=== PATIENT | male | born 1960 | race African-American/Black ===

== ENCOUNTER 2016-07-24 12:57 | Emergency (ER) | payer OTHER ==
--- NOTE | 2016-07-24 13:21 | ED EKG INTERP ---
EKG Interpretation - EKG Time of EKG reading by physician:: 13:18 EKG Read and Signed by:: Tal Bowden EKG Interpretation (*Must complete 3 of following elements*): Abnormal Rate: 68 Rhythm: nsr [place]: normal QRS: normal [place] Interval: normal ST Wave: normal Comments: inferior infarct
[2016-07-24 13:46] LABS: MANUAL DIFF NEEDED? NO
[2016-07-24 13:49] LABS: BASO% 0.3 % (0.0-0.8); EOS# 0.22 X1000 (0.0-0.7); EOS% 3.1 % (0.0-10.0); HEMATOCRIT 44.2 % (42.0-52.0); IMM GRAN# 0.03 X1000 (0.0-0.04); IMM GRAN% 0.4 % (0.0-0.5); LYMPH# 2.73 X1000 (1.2-3.4); LYMPH% 38.8 % (20.5-51.1); MCH 28.8 PG (27-31); MCHC 33.9 g/dL (33-37); MONO# 0.58 X1000 (0.11-0.59); MONO% 8.2 % (1.7-9.3); MPV 10.7 FL (7.4-10.4); NEUT% 49.2 % (42.2-75.2); PLT 257 X1000 (130-400)
[2016-07-24 14:16] LABS: AGAP 12; ALBUMIN 4.3 g/dL (3.5-5.0); ALKALINE PHOSPHATASE 76 U/L (32-122); BUN 20 mg/dL (8-22); CALCIUM 9.2 mg/dL (8.8-10.2); CHLORIDE 104 mmol/L (98-107); CK PROFILE 199 U/L (24-204); COSMO 285; GOT 18 U/L (10-34); GPT 20 U/L (10-44); MAGNESIUM 1.9 mg/dL (1.5-2.7); POTASSIUM 4.2 mmol/L (3.5-5.1); SODIUM 142 mmol/L (136-145); TCO2 26 mmol/L (25-35); TOTAL BILIRUBIN 0.45 mg/dL (0.20-1.00); TOTAL PROTEIN 7.5 g/dL (6.3-8.3)
--- NOTE | 2016-07-24 14:20 | Diag Imaging Result Document ---
PROCEDURE NAME: CHEST-2 VIEWS - 07/24/2016 PA AND LATERAL RADIOGRAPH OF THE CHEST: COMPARISON: 08/09/2013. FINDINGS: The lungs are grossly clear. There is no discrete pleural fluid collection or evidence of pneumothorax. The cardiomediastinal silhouette and upper airway are grossly unremarkable. IMPRESSION: No evidence of acute chest pathology.
--- NOTE | 2016-07-24 14:25 | EKG Report ---
Test Performed on : 07/24/2016 1:18:02 PM Test Reason : Chest Pain Blood Pressure : / mmHG Vent. Rate : 068 BPM Atrial Rate : 068 BPM P-R Int : 186 ms QRS Dur : 084 ms QT Int : 420 ms P-R-T Axes : 046 -07 028 degrees QTc Int : 446 ms Normal sinus rhythm. Inferior infarct , age undetermined Abnormal ECG No previous ECGs available Unconfirmed Result
[2016-07-24 14:29] LABS: PTT 25.2 Seconds (22.0-36.0)
[2016-07-24 14:30] LABS: PROTIME 10.2 Seconds (9.2-11.7)
--- NOTE | 2016-07-24 15:26 | PROVIDER DOCUMENTATION ---
HPI-Chest Pain - General Chief Complaint: Chest Pain Stated Complaint: CP Time Seen by Provider: 07/24/16 14:31 Source: patient Allergies/Adverse Reactions: Patient Allergies Allergy/AdvReac Type Severity Reaction Status Date / Time No Known Allergies Allergy Verified 07/24/16 15:07 Home Medications: Home Medication List Medication Instructions Recorded Confirmed Last Taken Type Dexamethasone [Decadron] 4 mg PO QAM #6 tablet 08/10/13 Unknown Rx Lisinopril 10 mg PO QAM #30 tablet 08/10/13 Unknown Rx - History of Present Illness-CP Nature of Presenting Problem: 56 y/o M nonsmoker with no chronic medical problems presents with chest pain x 2 weeks. Pain is described as a constant pressure/burning, 4/10, located in the center of his chest and radiating to the left chest. Reports pain improved temporarily with taking some samples of protonix he had at home. He denies any associated SOB, N/V, or diaphoresis. He reports one episode of feeling "woozy" today. Father had TN in his 60's. He has an appointment with his PCP in the morning for the chest pain but decided he wanted to get checked out tonight to make sure he wasn't having a heart attack. Review of Systems - Adult - REVIEW OF SYSTEMS - ADULT Constitutional: reports: no symptoms reported. denies: chills, fever Eyes: reports: no symptoms reported Ears, Nose, Mouth & Throat: reports: no symptoms reported Cardiovascular: reports: see HPI Respiratory: reports: no symptoms reported. denies: cough, shortness of breath , wheezing Gastrointestinal: reports: no symptoms reported. denies: abdominal pain, nausea , vomiting Genitourinary: reports: no symptoms reported. denies: dysuria, hematuria Musculoskeletal: reports: no symptoms reported. denies: back pain, neck pain Integumentary: reports: no symptoms reported Neurological: reports: no symptoms reported. denies: dizziness/vertigo, headache/migraines, numbness, paresthesia, syncope Psychiatric: reports: no symptoms reported Endocrine: reports: no symptoms reported Hematologic/Lymphatic: reports: no symptoms reported Allergic/Immunologic: reports: no symptoms reported All Other Systems: Reviewed and Negative Past History - Adult - PAST MEDICAL HISTORY-ADULT Review of Records: reports: Old Records Reviewed, Nursing Assessment Review, Medications Reviewed, Social history reviewed & non-contributory. Major Childhood Illnesses: reports: denies history Cardiovascular: reports: denies history Respiratory: reports: denies history Gastrointestinal: reports: denies history Obstetrical/Gynecological: reports: denies history Genitourinary: reports: denies history Musculoskeletal: reports: denies history Neurological: reports: denies history Psychiatric: reports: denies history Endocrine/Immune: reports: denies history Other Conditions: reports: denies history - PRIOR SURGERIES/PROCEDURES Surgical/Procedure History: reports: none - PRIOR HOSPITALIZATIONS Prior Hospitalizations: reports: none - IMMUNIZATION STATUS Childhood Immunizations: See Nurse Assessment Flu Vaccine: See Nurse Assessment - FAMILY HISTORY Family History: reviewed, not pertinent Physical Exam-General - PHYSICAL EXAM-ADULT Initial Vital Signs Reviewed: Yes - CONSTITUTIONAL General Appearance: appears well, alert, no apparent distress, other (patient standing in room eating ludwig[employer]) - EYES Eyes: PERRL/EOMI, pink conjunctivae - HEAD, EARS, NOSE, MOUTH & THROAT HENMT: normocephalic/atraumatic, moist mucous membranes - NECK Neck: normal inspection - RESPIRATORY Respiratory: chest non-tender, lungs clear, normal breath sounds, no pleuratic chest pain, no respiratory distress, no accessory muscle use - CARDIOVASCULAR Cardiovascular: normal peripheral pulses, regular rate, rhythm, no edema, no gallop, no JVD, no murmur - GASTROINTESTINAL (ABDOMEN) Abdominal Exam: normal bowel sounds, non tender, soft - MUSCULOSKELETAL Back Exam: normal inspection Extremity: normal gait, normal inspection Peripheral Pulses: radial (R): 2+, radial (L): 2+ - SKIN Integumentary: normal color, normal turgor, warm/dry - NEUROLOGIC Neurologic: grossly normal, no motor/sensory deficits - PSYCHIATRIC Psych/Mental Status: normal mood/affect, normal thought content, normal thought process, oriented x 3 Progress - PLAN OF CARE/RESULTS Progress/Plan/Lab Results: Laboratory Tests 07/24/16 07/24/16 07/24/16 13:19 13:19 13:19 WBC 7.04 RBC 5.20 Hgb 15.0 Hct 44.2 MCV 85.0 MCH 28.8 MCHC 33.9 RDW Std Deviation 12.2 Plt Count 257 MPV 10.7 H Immature Gran % (Auto) 0.4 Neut % (Auto) 49.2 Lymph % (Auto) 38.8 [place] % (Auto) 8.2 Eos % (Auto) 3.1 Baso % (Auto) 0.3 Immature Gran # (Auto) 0.03 Neut # (Auto) 3.46 Lymph # (Auto) 2.73 [place] # (Auto) 0.58 Eos # (Auto) 0.22 Baso # (Auto) 0.02 PT INR PTT (Actin FS) D-Dimer 0.21 Sodium 142 Potassium 4.2 Chloride 104 Carbon Dioxide 26 Anion Gap 12 BUN 20 Creatinine 1.2 Estimated GFR/1.73 m2 > 60 BUN/Creatinine Ratio 17 Glucose 93 Calculated Osmolality 285 Calcium 9.2 Magnesium 1.9 Total Bilirubin 0.45 AST 18 ALT 20 Alkaline Phosphatase 76 Creatine Kinase 199 Troponin T Sjd-B-Couvmcqhhwy Pept Total Protein 7.5 Albumin 4.3 Globulin 3.2 Albumin/Globulin Ratio 1.3 07/24/16 07/24/16 07/24/16 13:19 13:19 13:19 WBC RBC Hgb Hct MCV MCH MCHC RDW Std Deviation Plt Count MPV Immature Gran % (Auto) Neut % (Auto) Lymph % (Auto) [place] % (Auto) Eos % (Auto) Baso % (Auto) Immature Gran # (Auto) Neut # (Auto) Lymph # (Auto) [place] # (Auto) Eos # (Auto) Baso # (Auto) PT 10.2 INR 1.00 PTT (Actin FS) 25.2 D-Dimer Sodium Potassium Chloride Carbon Dioxide Anion Gap BUN Creatinine Estimated GFR/1.73 m2 BUN/Creatinine Ratio Glucose Calculated Osmolality Calcium Magnesium Total Bilirubin AST ALT Alkaline Phosphatase Creatine Kinase Troponin T < 0.010 Qdc-I-Lctyyojzcqs Pept 38 Total Protein Albumin Globulin Albumin/Globulin Ratio Orders Category Date Time Status Orthostatic Vital Signs NOW Care 07/24/16 15:04 Active CHEST-2 VIEWS [RAD] Stat Exams 07/24/16 13:12 Draft CBC WITH ELECTRONIC DIFF [HEME] Stat Lab 07/24/16 13:19 Completed CK PROFILE [SP CHEM] Stat Lab 07/24/16 13:19 Completed COMPREHENSIVE METABOLIC PANEL [CHEM] Stat Lab 07/24/16 13:19 Completed D-DIMER [CHEM] Stat Lab 07/24/16 13:19 Completed MAGNESIUM [CHEM] Stat Lab 07/24/16 13:19 Completed PRO B-NATRIURETIC PEPTIDE Stat Lab 07/24/16 13:19 Completed PROTIME WITH INR [COAG] Stat Lab 07/24/16 13:19 Completed PTT [COAG] Stat Lab 07/24/16 13:19 Completed TROPONIN T Stat Lab 07/24/16 13:19 Completed EKG [EKG] Stat Ther 07/24/16 13:12 Draft Vital Signs Temp Pulse Resp BP Pulse Ox 07/24/16 13:08 97.9 F 67 16 134/87 100 No Known Allergies Allergy (Verified 07/24/16 15:07) Dexamethasone [Decadron] 4 mg PO QAM #6 tablet 08/10/13 Lisinopril 10 mg PO QAM #30 tablet 08/10/13 Laboratory 07/24/16 07/24/16 07/24/16 13:19 13:19 13:19 WBC RBC Hgb Hct MCV MCH MCHC RDW Std Deviation Plt Count MPV Immature Gran % (Auto) Neut % (Auto) Lymph % (Auto) [place] % (Auto) Eos % (Auto) Baso % (Auto) Immature Gran # (Auto) Neut # (Auto) Lymph # (Auto) [place] # (Auto) Eos # (Auto) Baso # (Auto) PT 10.2 INR 1.00 PTT (Actin FS) 25.2 D-Dimer Sodium Potassium Chloride Carbon Dioxide Anion Gap BUN Creatinine Estimated GFR/1.73 m2 BUN/Creatinine Ratio Glucose Calculated Osmolality Calcium Magnesium Total Bilirubin AST ALT Alkaline Phosphatase Creatine Kinase Troponin T < 0.010 Xog-L-Kkuzivtazzp Pept 38 Total Protein Albumin Globulin Albumin/Globulin Ratio 07/24/16 07/24/16 07/24/16 13:19 13:19 13:19 WBC 7.04 RBC 5.20 Hgb 15.0 Hct 44.2 MCV 85.0 MCH 28.8 MCHC 33.9 RDW Std Deviation 12.2 Plt Count 257 MPV 10.7 H Immature Gran % (Auto) 0.4 Neut % (Auto) 49.2 Lymph % (Auto) 38.8 [place] % (Auto) 8.2 Eos % (Auto) 3.1 Baso % (Auto) 0.3 Immature Gran # (Auto) 0.03 Neut # (Auto) 3.46 Lymph # (Auto) 2.73 [place] # (Auto) 0.58 Eos # (Auto) 0.22 Baso # (Auto) 0.02 PT INR PTT (Actin FS) D-Dimer 0.21 Sodium 142 Potassium 4.2 Chloride 104 Carbon Dioxide 26 Anion Gap 12 BUN 20 Creatinine 1.2 Estimated GFR/1.73 m2 > 60 BUN/Creatinine Ratio 17 Glucose 93 Calculated Osmolality 285 Calcium 9.2 Magnesium 1.9 Total Bilirubin 0.45 AST 18 ALT 20 Alkaline Phosphatase 76 Creatine Kinase 199 Troponin T Smo-U-Bfjmtaetstj Pept Total Protein 7.5 Albumin 4.3 Globulin 3.2 Albumin/Globulin Ratio 1.3 Patient with low cardiac risk and chest pain atypical of cardiac pain. Labs unremarkable. EKG normal. CXR NAD. Discussed with Dr. Bowden. Will discharge patient home to follow up with PCP tomorrow. Patient counseled on reasons to return to the ER. He voices understanding and agrees. - EKG 1 Time of EKG reading by physician:: 15:25 EKG Read and Signed by:: Tal Bowden EKG Interpretation (*Must complete 3 of following elements*): Normal Rate: 68 Rhythm: NSR [place]: normal QRS: normal [place] Interval: normal ST Wave: normal Comments: Reviewed EKG with Dr. Bowden. No inferior infarct. - XRAY 1 XRAY Study: Chest XRAY Interpretation: NAD Departure - Departure Time of Disposition Order: 15:21 DIAGNOSIS: Chest pain Qualifiers: Chest pain type: unspecified Qualified Code(s): R07.9 - Chest pain, unspecified Disposition: HOME 01 Certified Medical Emergency: Emergent Condition: Good Additional Instructions: keep your appointment with your primary care provider tomorrow for further evaluation including scheduling an outpatient stress test. ED Follow Up Instructions: You have been treated by a care provider in the Emergency Department. These instructions are being provided to you so you can have an understanding of how to care for yourself upon discharge. Upon discharge from the Emergency Department, you are responsible for making arrangements for follow-up care by a physician of your choice. Take all prescribed medications as directed. Return to the Emergency Department immediately for any new or worsening symptoms. You may call the Physician Referral phone number at [phone] to obtain a list of Physicians who are taking new patients. Attestation - Physician/ SYEDA Attestation Patient care was provided by Advanced Practice Provider:: Yes Advanced Practice Provider:: Filomena Medina Advanced Practice Provider documentation review:: The Mid-level provider documentation, treatment plan and medical decision making was reviewed by the physician who agrees with all treatment and medical decision making by the MLP.
[2016-07-24 15:54] VITALS: BP 151/98
== END 2016-07-24 15:54 | disposition home or self-care (01) ==
LOC: ED 12:57
DX: R07.9 Chest pain, unspecified (principal); R94.31 Abnormal electrocardiogram [ECG] [EKG]
CPT/HCPCS: 71020; 80053; 82550; 83735; 83880; 84484; 85025; 85379; 85610; 85730; 93005

== ENCOUNTER 2016-12-08 03:53 | Inpatient (IN) ==
[2016-12-02 09:19] LABS: MANUAL DIFF NEEDED? NO; URINE MICRO REVIEW NEEDED? NO; URINE SOURCE CLEAN CATCH
[2016-12-02 09:25] LABS: BASO% 0.5 % (0.0-0.8); BILIRUBIN URINE NEGATIVE (NEGATIVE); BLOOD URINE TRACE (NEGATIVE); COLOR YELLOW; EOS# 0.23 X1000 (0.0-0.7); EOS% 3.6 % (0.0-10.0); GLUCOSE URINE NEGATIVE (NEGATIVE); HEMATOCRIT 44.9 % (42.0-52.0); HEMOGLOBIN 14.9 g/dL (14.0-18.0); LEUKOCYTES URINE NEGATIVE (NEGATIVE); LYMPH# 2.32 X1000 (1.2-3.4); LYMPH% 35.9 % (20.5-51.1); MCH 28.9 PG (27-31); MCHC 33.2 g/dL (33-37); MCV 87.2 FL (81-99); MONO# 0.54 X1000 (0.11-0.59); MONO% 8.3 % (1.7-9.3); MPV 10.6 FL (7.4-10.4); NEUT% 51.7 % (42.2-75.2); NITRITE URINE NEGATIVE (NEGATIVE); PH URINE 5.5; PLT 269 X1000 (130-400); PROTEIN URINE NEGATIVE (NEGATIVE); RBC 5.15 XMIL (4.7-6.1); SP GRAVITY URINE 1.017; TURBIDITY URINE CLEAR (CLEAR); UR EPITHELIAL CELLS <10 /HPF (<10); URINE BACTERIA NEGATIVE /HPF; URINE RBC <10 /HPF (<10); URINE WBC <10 /HPF (<10); UROBILINOGEN URINE NORMAL (NORMAL)
[2016-12-02 09:35] LABS: INR 1.02; PROTIME 10.7 Seconds (9.2-11.7); PTT 27.4 Seconds (22.0-36.0)
[2016-12-02 10:11] LABS: AGAP 10; BUN 21 mg/dL (8-22); CALCIUM 9.7 mg/dL (8.8-10.2); CHLORIDE 103 mmol/L (98-107); COSMO 283; POTASSIUM 4.4 mmol/L (3.5-5.1); SODIUM 140 mmol/L (136-145); TCO2 27 mmol/L (25-35)
--- NOTE | 2016-12-02 10:31 | EKG Report ---
Test Performed on : 12/02/2016 08:54:13 AM Test Reason : PAT Blood Pressure : / mmHG Vent. Rate : 062 BPM Atrial Rate : 062 BPM P-R Int : 182 ms QRS Dur : 088 ms QT Int : 432 ms P-R-T Axes : 014 -07 009 degrees QTc Int : 438 ms Normal sinus rhythm. Normal ECG When compared with ECG of 24-JUL-2016 13:18, No significant change was found Confirmed by Muna Etienne MD ([id number]) on 12/02/2016 1:40:51 PM
[2016-12-08] MEDS ORDERED: COLACE ONE (07:13)
[2016-12-08] MEDS ORDERED: LYRICA ONE (07:14)
[2016-12-08] MEDS ORDERED: REGLAN ONE (07:14)
[2016-12-08] MEDS ORDERED: CELEBREX ONE (07:14)
[2016-12-08] MEDS ORDERED: LR 1,000 ML ONE (07:14)
[2016-12-08] MEDS ORDERED: PEPCID ONE (07:14)
[2016-12-08] MEDS ORDERED: KEFZOL 2 GM/D5W 2 GM/50 ML IVPB ONE (07:15)
[2016-12-08] MEDS ORDERED: XYLOCAINE-MPF 2% ONE (08:06)
[2016-12-08] MEDS ORDERED: VERSED ONE ×2 (08:06→11:11)
[2016-12-08] MEDS ORDERED: DIPRIVAN 1% ONE (08:07)
[2016-12-08] MEDS ORDERED: FENTANYL ONE (08:08)
[2016-12-08] MEDS ORDERED: SENSORCAINE 0.25%/EPI 1:200,000 ONE (08:21)
[2016-12-08] MEDS ORDERED: VANCOMYCIN ONE (08:21)
[2016-12-08] MEDS ORDERED: SODIUM CHLORIDE 0.9% ONE (08:21)
[2016-12-08] MEDS ORDERED: CYKLOKAPRON 1,000 MG/NS 1,000 MG/100 ML IVPB ONE ×2 (08:21→08:23)
[2016-12-08] MEDS ORDERED: DURAMORPH ONE (08:21)
[2016-12-08] MEDS ORDERED: TORADOL ONE ×2 (08:21→09:37)
[2016-12-08] MEDS ORDERED: NEOSPORIN G.U. IRRIGANT ONE (08:22)
[2016-12-08] MEDS ORDERED: EXPAREL 1.3% ONE (08:22)
[2016-12-08] MEDS ORDERED: OFIRMEV 1000 MG/ISOTONIC SOLN 1,000 MG/100 ML BOTTLE ONE (09:37)
[2016-12-08] MEDS ORDERED: ZOFRAN ONE (09:37)
[2016-12-08] MEDS ORDERED: DECADRON ONE (09:37)
[2016-12-08 09:59] LABS: URINE MICRO REVIEW NEEDED? NO; URINE SOURCE CATH
[2016-12-08 10:02] LABS: BILIRUBIN URINE NEGATIVE (NEGATIVE); BLOOD URINE NEGATIVE (NEGATIVE); COLOR STRAW; GLUCOSE URINE NEGATIVE (NEGATIVE); LEUKOCYTES URINE NEGATIVE (NEGATIVE); NITRITE URINE NEGATIVE (NEGATIVE); PH URINE 7.5; PROTEIN URINE NEGATIVE (NEGATIVE); SP GRAVITY URINE 1.002; TURBIDITY URINE CLEAR (CLEAR); UR EPITHELIAL CELLS <10 /HPF (<10); URINE BACTERIA NEGATIVE /HPF; URINE RBC <10 /HPF (<10); URINE WBC <10 /HPF (<10); UROBILINOGEN URINE NORMAL (NORMAL)
[2016-12-08] MEDS ORDERED: NS 1,000 ML ONE (11:38)
[2016-12-08] MEDS ORDERED: AMBIEN PO PRN (11:45)
[2016-12-08] MEDS ORDERED: MORPHINE IV PRN (11:45)
[2016-12-08] MEDS ORDERED: OXY IR PO PRN (11:45)
[2016-12-08] MEDS ORDERED: ZOFRAN IV PRN (11:45)
[2016-12-08] MEDS ORDERED: MILK OF MAGNESIA PO PRN (11:45)
[2016-12-08] MEDS: ULTRAM PO SCH ×2 (15:00→21:10)
[2016-12-08] MEDS: TYLENOL PO SCH ×2 (15:00→21:11)
--- NOTE | 2016-12-08 15:45 | OPERATIVE NOTE ---
PROCEDURE DATE: 12/08/2016 PREOPERATIVE DIAGNOSIS: Left knee degenerative joint disease. POSTOPERATIVE DIAGNOSIS: Left knee degenerative joint disease. PROCEDURE PERFORMED: Left total knee arthroplasty using [facility] size 8 femoral component, size 8 base plate, a 16 mm articular insert, and a 38 mm patellar component. ANESTHESIA: Spinal. SURGEON: Tony Crouch MD CHIEF NURSE EXECUTIVE: Anushka Ricketts PA-C, who was present throughout the case and assisted on the bone preparation for the implants, assisted with implanting the implants and removal of the cement, assisted with wound closure as well. She was critical for the success of the case. SECOND CHIEF NURSE EXECUTIVE: Augie Otoole RN COMPLICATIONS: None. BLOOD LOSS: Minimal. DRAINS: Hemovac x1. DESCRIPTION OF PROCEDURE: The patient was brought to operative suite and placed in supine position. After successful administration of spinal anesthesia, a well-padded tourniquet was placed on the left proximal thigh. The left lower extremity was prepped and draped in the usual sterile fashion. The leg was exsanguinated. Tourniquet insufflated to 350 torr. A longitudinal incision was made beginning at the superior pole of the patella and extended distally to the tibia tuberosity, it was dissected sharply through the skin. Full-thickness skin flaps were elevated medially and laterally. A medial arthrotomy was made with a vastus snip. The medial capsule was elevated off the medial tibial plateau. The prepatellar fat pad, ACL, PCL, medial meniscus, and lateral meniscus were excised. A drill was entered in the center of the distal femur, intramedullary guide was placed, distal cutting block was pinned into place, distal cuts made with the oscillating saw. The femur was sized to a size 8. A size 8 guide was used for the anterior cuts, chamfer cuts, and posterior condylar cuts. The marginal osteophytes removed with rongeur. The box cutting block was pinned in place. A box cut was made a box osteotome and oscillating saw. Posterior condyle osteophytes removed with curved osteotome and rongeur. Attention was then directed to the tibia. A drill was entered in the center of the tibia. An intramedullary guide was placed. Alignment was checked with drop alexsandra referencing off the anterior cortex of the tibia and the second ray of the foot, and taking 4 mm off the low side the tibia which, in this case, was medially. The tibial cutting block was pinned into place. The articular surface of the tibial plateau was removed with an oscillating saw. Flexion-extension gaps were checked and balanced, he was found to be tight medially, a medial release was performed. He was found to be balanced at 16 mm both in flexion and extension. The tibia was sized to a size 8, a size 8 guide was used for the fin punch. The tibial trial, femoral trial, and 8 and 16 mm insert were placed, taken through range of motion found to have excellent alignment, balancing, range of motion and patellar tracking. Attention then directed to the patella and 9 mm of the articular surface of the patella removed with oscillating saw. Patella sized to a size 38. A size 38 guide was used to drill peg holes. The lateral facet was chamfered 30 to 45 degrees. Patella trial was placed, taken through range of motion. A drain was placed exiting superior laterally. The trial articular insert was removed. Once verified that the patella tracked well all the trials were removed. The knee was copiously irrigated and dried, being certain all bone debris was removed. The tibial component, femoral component, patellar component were cemented in place, excess cement being removed with a [place]. Once the cement had hardened, excess cement was again removed with an osteotome. The knee was again copiously irrigated and dried, being certain all bone and cement debris removed. The trial articular insert was removed. The knee was copiously infiltrated with Exparel, including the posterior capsule, anterior capsule, medial and lateral collateral ligaments, anterior musculature, and the definitive articular insert was locked into place. A drain was placed exiting superior laterally and buried in the lateral gutter. The medial arthrotomy was closed with a running 0 V-Loc suture. The skin edge approximated with 2-0 Vicryl, closed with Prineo, a sterile dressing was applied. The patient tolerated the procedure well without complication. At the end of the procedure, all counts correct x2. The patient was transferred to the recovery room in stable condition. cc: Tony Crouch MD
[2016-12-08] MEDS: KEFZOL 2 GM/D5W 2 GM/50 ML IVPB IV SCH (18:02)
[2016-12-08] MEDS: NS 1,000 ML IV SCH (21:10)
[2016-12-08] MEDS: COLACE PO SCH (21:11)
[2016-12-08] MEDS: CELEBREX PO SCH (21:11)
[2016-12-08] MEDS: PERIDEX MT SCH (21:11)
[2016-12-08] MEDS: LYRICA PO SCH (21:11)
[2016-12-09] MEDS: KEFZOL 2 GM/D5W 2 GM/50 ML IVPB IV SCH (01:35)
[2016-12-09] MEDS: TYLENOL PO SCH ×2 (03:10→08:11)
[2016-12-09] MEDS: ULTRAM PO SCH ×2 (03:10→08:10)
[2016-12-09] MEDS: NS 1,000 ML IV SCH (03:54)
[2016-12-09] MEDS ORDERED: XARELTO PO SCH (06:00)
[2016-12-09 06:02] LABS: AGAP 11; BUN 15 mg/dL (8-22); CALCIUM 8.6 mg/dL (8.8-10.2); CHLORIDE 103 mmol/L (98-107); COSMO 284; POTASSIUM 4.1 mmol/L (3.5-5.1); SODIUM 140 mmol/L (136-145); TCO2 26 mmol/L (25-35)
[2016-12-09 07:51] VITALS: BP 132/78
[2016-12-09] MEDS: CELEBREX PO SCH (08:11)
[2016-12-09] MEDS: LYRICA PO SCH (08:11)
[2016-12-09] MEDS: COLACE PO SCH (08:11)
[2016-12-09] MEDS: PERIDEX MT SCH (08:12)
[2016-12-09] MEDS ORDERED: PEPCID PO SCH (09:00)
[2016-12-09] MEDS ORDERED: DECADRON IV ONE (09:00)
--- NOTE | 2016-12-09 10:55 | DISCHARGE SUMMARY ---
ADMISSION DATE: 12/08/2016 DISCHARGE DATE: 12/09/2016 DISCHARGE DIAGNOSIS: Left knee degenerative joint disease, status post left total knee arthroplasty. DISCHARGE MEDICATIONS: See discharge medication list. DISPOSITION: The patient is discharged home with outpatient physical therapy. DISCHARGE INSTRUCTIONS: Instructions for total knee arthroplasty protocol and instructed to return to see Dr. Crouch next . HOSPITAL COURSE: On the day of admission, the patient underwent a left total knee arthroplasty. His postoperative course was unremarkable. At discharge, he was afebrile, tolerating a regular diet, and ambulating well with physical therapy. Yesterday, he walked 125. His hemoglobin was 12 and his hematocrit was 36. He had 75 mL of drainage from his Hemovac. His wound was clean, dry, and intact without sign of infection. His calf was soft. His left leg was neurovascularly intact. He was discharged home with outpatient physical therapy in stable condition with instructions to follow up as described above. Dictated by TONY Castillo for Tony Crouch MD cc: TONY Castillo MD
== END 2016-12-09 11:02 | disposition home or self-care (01) ==
LOC: SURHOLD 03:53 → 4N 10:22
PROVIDERS: ADMIT Orthopaedic Surgery; ATTEND Orthopaedic Surgery